=== PATIENT | male | born 1990 | race Caucasian/White ===

== ENCOUNTER → 2020-10-30 | Outpatient (CLI) | payer OTHER ==
[~2020-10-30] MED LIST: IBUPROFEN600 MG PO; NORCO 5-325 TA1 EACH PO; NORFLEX 100 MG100 MG PO
== END ==
LOC: RAD 17:07
DX: R07.81 Pleurodynia (principal); R10.2 Pelvic and perineal pain
CPT/HCPCS: 71111; 73522